=== PATIENT | male | born 1970 ===

== ENCOUNTER 2018-01-10 14:41 | Emergency (ER) | payer SELFPAY ==
[2018-01-10] MEDS ORDERED: DILAUDID IV ONE ×2 (16:09→18:42)
[2018-01-10] MEDS ORDERED: ZOFRAN IV ONE (16:09)
[2018-01-10] MEDS ORDERED: NACL 0.9% 1000 ML 1,000 ML IV ONE (16:09)
[2018-01-10 16:55] LABS: BUN/Creatinine Ratio 21; Blood Urea Nitrogen 17 mg/dL (9-20); Calcium 9.1 mg/dL (8.4-10.2); Hemolysis Index 18
[2018-01-10 17:08] LABS: Basophils % (Auto) 0.3 % (0.0-1.8); Eosinophils # (Auto) 0.2 K/mm3 (0.0-0.4); Eosinophils % (Auto) 1.2 % (0.0-4.3); Hematocrit 43.5 % (35.5-45.6); Hemoglobin 15.2 gm/dl (11.8-15.2); Lymphocytes # (Auto) 1.1 K/mm3 (1.2-5.4); Lymphocytes % (Auto) 7.2 % (13.4-35.0); Mean Corpuscular HGB Conc 35 % (32-34); Mean Corpuscular Hemoglobin 30 pg (28-32); Mean Corpuscular Volume 85 fl (84-94); Monocytes # (Auto) 0.7 K/mm3 (0.0-0.8); Monocytes % (Auto) 4.5 % (0.0-7.3); Platelet Count 191 K/mm3 (140-440); Red Blood Count 5.14 M/mm3 (3.65-5.03); Red Cell Distribution Width 13.5 % (13.2-15.2)
--- NOTE | 2018-01-10 17:29 | Cat Scan Report ---
FINAL REPORT PROCEDURE: CT PELVIS WO CON TECHNIQUE: Computerized axial tomography of the pelvis was performed without contrast material. HISTORY: pain fell off roof COMPARISON: No prior studies are available for comparison. TECHNICAL QUALITY: Satisfactory. FINDINGS: No fractures of the pelvis are visualized. There is no dislocation. There is bilateral spondylolysis with grade 1 spondylolisthesis L5 in relation S1 which appears chronic. There is moderate degenerative disc disease at this level with disc space narrowing and anterior osteophyte formation. There is a mild disc bulge without focal disc herniation. No abnormal fluid collections are seen in the lower pelvis. Postsurgical changes are seen in the region of the cecum suggesting prior cholecystectomy. No hematomas are identified. IMPRESSION: No acute abnormalities are seen. No evidence of fracture or dislocation. Bilateral spondylolysis L5 with grade 1 spondylolisthesis as described above. This appears chronic.
--- NOTE | 2018-01-10 17:35 | Cat Scan Report ---
FINAL REPORT PROCEDURE: CT LUMBAR SPINE WO CON TECHNIQUE: Computerized axial tomography of the lumbar spine was performed from T12 to the sacrum without contrast material. HISTORY: pain fell off roof COMPARISON: No prior studies are available for comparison. FINDINGS: There is mild compression deformity involving the superior endplate L2. There appear to be subtle fracture lines visualized on axial image 89 series 3 suggesting acute fracture. No retropulsed fragments are identified. There appears to be a mild disc bulge at the L2-L3 level and also at the L3-4 level without focal disc herniation or spinal stenosis. Mild diffuse posterior disc bulge also present at the L4-5 level. Bilateral spondylolysis visualized at L5 with grade 1 spondylolisthesis. I suspect this is chronic. I do not see discrete fracture lines in the pars interarticularis. There is moderate narrowing of the L5-S1 disc space and small anterior osteophytic spurs as well as a mild diffuse posterior disc bulge. There is disc space narrowing and anterior osteophytic spurring at the T12-L1 disc space. Incidental note is made of a small nonobstructing calculus in the left kidney measuring approximately 3 millimeters. The entire kidneys are not included on this exam. IMPRESSION: Mild acute compression fracture superior endplate L2 with approximately 20 percent loss in height. No retropulsed fragments are identified. Bilateral spondylolysis L5 with grade 1 spondylolisthesis as described. This appears chronic. Mild disc bulges are visualized at L2-L3, L3-L4, L4-L5. No focal disc herniation or spinal stenosis is visualized. Small nonobstructing calculus visualize left kidney as described above.
--- NOTE | 2018-01-10 18:37 | Emergency Department Report ---
ED General Adult HPI - General Chief complaint: Fall Stated complaint: FALL FROM 10 FT ROOF/BACK PX Time Seen by Provider: 01/10/18 15:58 Source: patient, family, EMS Mode of arrival: Stretcher Limitations: No Limitations - History of Present Illness Initial comments: Patient fell approximately 10 feet off a roof onto his back. He complains of discomfort of his lower back only. He states he was able to walk but it was painful. He denies any focal weakness or numbness. He denies any abdominal pain. He denies any impact to his head. He denies any neck or mid back pain. He denies abdominal and chest pain. I obtained this history of Tel[place]. -: Gradual Location: back Radiation: non-radiation Severity scale (0 -10): 10 Quality: aching Consistency: constant Improves with: none Worsens with: movement Associated Symptoms: denies other symptoms Treatments Prior to Arrival: none - Related Data Previous Rx's Medication Instructions Recorded Last Taken Type HYDROcodone/APAP 5-325 [[place] 1 each PO Q4HR PRN #30 tablet 01/10/18 Unknown Rx 5/325] Allergies Allergy/AdvReac Type Severity Reaction Status Date / Time No Known Allergies Allergy Unverified 01/10/18 15:30 ED Review of Systems ROS: Stated complaint: FALL FROM 10 FT ROOF/BACK PX Other details as noted in HPI Constitutional: denies: chills, fever Eyes: denies: eye pain, eye discharge, vision change ENT: denies: ear pain, throat pain Respiratory: denies: cough, shortness of breath, wheezing Cardiovascular: denies: chest pain, palpitations Endocrine: no symptoms reported Gastrointestinal: denies: abdominal pain, nausea, diarrhea Genitourinary: denies: urgency, dysuria Musculoskeletal: as per HPI, back pain Skin: denies: rash, lesions Neurological: denies: headache, weakness, paresthesias Psychiatric: denies: anxiety, depression Hematological/Lymphatic: denies: easy bleeding, easy bruising ED Past Medical Hx - Past Medical History Previous Medical History?: No - Surgical History Past Surgical History?: No - Social History Smoking Status: Never Smoker Substance Use Type: None - Medications Home Medications: Home Medications Medication Instructions Recorded Confirmed Last Taken Type HYDROcodone/APAP 5-325 [[place] 1 each PO Q4HR PRN #30 tablet 01/10/18 Unknown Rx 5/325] ED Physical Exam - General Limitations: No Limitations General appearance: alert, in no apparent distress - Head Head exam: Present: atraumatic, normocephalic - Eye Eye exam: Present: normal appearance, PERRL, EOMI. Absent: scleral icterus - ENT ENT exam: Present: mucous membranes moist - Neck Neck exam: Present: normal inspection. Absent: tenderness, meningismus - Respiratory Respiratory exam: Present: normal lung sounds bilaterally. Absent: respiratory distress - Cardiovascular Cardiovascular Exam: Present: regular rate, normal rhythm. Absent: systolic murmur, diastolic murmur, rubs, gallop - GI/Abdominal GI/Abdominal exam: Present: soft, normal bowel sounds. Absent: distended, tenderness, guarding, rebound, rigid - Rectal Rectal exam: Present: deferred - Extremities Exam Extremities exam: Present: normal inspection, full ROM, normal capillary refill. Absent: tenderness, pedal edema, joint swelling, calf tenderness - Back Exam Back exam: Present: tenderness (lower back only. No mid back tenderness no neck tenderness), other (patient appears to have mild early ecchymosis in the lower lumbar/upper presacral area. He has no costovertebral angle tenderness. He has a negative straight leg raise test.). Absent: CVA tenderness (R) - Neurological Exam Neurological exam: Present: alert, oriented X3, CN II-XII intact. Absent: motor sensory deficit - Psychiatric Psychiatric exam: Present: normal affect, normal mood - Skin Skin exam: Present: warm, dry, intact, normal color. Absent: rash ED Course Vital Signs 01/10/18 15:20 Temperature 98.9 F Pulse Rate 72 Respiratory 16 Rate Blood Pressure 135/92 O2 Sat by Pulse 99 Oximetry - Reevaluation(s) Reevaluation #1: Patient more comfortable after analgesia. No supplemental complaints or apparent injury. Remains neurologically intact. 01/10/18 18:39 ED Medical Decision Making - Lab Data Result diagrams: 01/10/18 16:20 01/10/18 16:20 Laboratory Results - last 24 hr 01/10/18 01/10/18 16:20 16:20 WBC 15.1 H RBC 5.14 H Hgb 15.2 Hct 43.5 MCV 85 MCH 30 MCHC 35 H RDW 13.5 Plt Count 191 Lymph % (Auto) 7.2 L [place] % (Auto) 4.5 Eos % (Auto) 1.2 Baso % (Auto) 0.3 Lymph # 1.1 L [place] # 0.7 Eos # 0.2 Baso # 0.0 Seg Neutrophils % 86.8 H Seg Neutrophils # 13.1 H Sodium 140 Potassium 3.8 Chloride 101.2 Carbon Dioxide 23 Anion Gap 20 BUN 17 Creatinine 0.8 Estimated GFR > 60 BUN/Creatinine Ratio 21 Glucose 119 H Calcium 9.1 - Radiology Data Radiology results: report reviewed interpreted by me: No sacral fracture. CT of the lumbar spine shows a 20% anterior endplate fracture of L2. There is no retropulsion. There is no significant disc herniation. Critical care attestation.: If time is entered above; I have spent that time in minutes in the direct care of this critically ill patient, excluding procedure time. ED Disposition Clinical Impression: Fracture of L2 vertebra Qualifiers: Encounter type: initial encounter Fracture type: closed Fracture morphology: wedge compression Qualified Code(s): S32.020A - Wedge compression fracture of second lumbar vertebra, initial encounter for closed fracture Disposition: TO HOME OR SELFCARE Is pt being admited?: No Does the pt Need Aspirin: No Condition: Stable Instructions: Vertebral Compression Fracture (ED) Additional Instructions: Return any acute change or problem. Return if you have any difficulty urinating or any weakness or numbness in your legs. Rest. Rx for pain. Follow -up with strategic planning specialist. See Dr. Willis Saturday. The number is listed. Return if any further problem or change. Prescriptions: HYDROcodone/APAP 5-325 [[place] 5/325] 1 each PO Q4HR PRN #30 tablet PRN Reason: Pain Referrals: EILEEN BECKER MD [Primary Care Provider] - 3-5 Days EVANGELIST WILLIS MD [Staff Physician] - 2-3 Days Time of Disposition: 18:39 Print Language: SWEDISH
[2018-01-10 19:11] VITALS: BP 121/78
== END 2018-01-10 19:11 | disposition home or self-care (01) ==
LOC: ED 14:41
DX: S32.020A Wedge compression fracture of second lumbar vertebra, initial encounter for closed fracture (principal); W17.89XA Other fall from one level to another, initial encounter; Y93.89 Activity, other specified; Y92.89 Other specified places as the place of occurrence of the external cause; Y99.8 Other external cause status
CPT/HCPCS: 36415; 72131; 72192; 80048; 85025; 96361; 96374; 96375; 99284; J1170; J2405; J7030